=== PATIENT | male | born 2000 | race African-American/Black ===

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

== ENCOUNTER 2020-02-10 09:47 | Emergency (ER) | payer BC ==
[~2020-02-10] VITALS: Ht 177.8 cm; Wt 68.0 kg
[2020-02-10 11:22] VITALS: BP 125/76
--- NOTE | 2020-02-10 13:36 | Emergency Room Report ---
History of Present Illness General Chief Complaint: Upper Respiratory Illness Source: Patient Present Illness HPI 19-year-old male presents to ED for evaluation. States that for the last few days he has been having a cough and congestion. States episodic shortness of breath. Denies shortness of breath at this time. Cough is dry. Denies fevers or chills. Mother was concerned about Covid. States he he lives with elderly family members. No other aggravating relieving factors. 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 Patient History Past Medical History: asthma Past Surgical History: none Pertinent Family History: none Social History: Denies: smoking, alcohol use, drug use Immunizations: UTD Reviewed Nursing Documentation: PMH: Agreed; PSxH: Agreed Nursing Documentation-PMH Past Medical History: No History, Except For Hx Asthma: Yes Hx Neurological Problems: Yes Review of Systems All Other Systems: negative except mentioned in HPI Physical Exam Vital Signs Date Time Temp Pulse Resp B/P (MAP) Pulse Ox O2 Delivery O2 Flow Rate FiO2 02/10/20 09:52 98.4 83 18 128/68 (88) 97 Room Air Sp02 EP Interpretation: reviewed, normal General Appearance: no apparent distress, alert, GCS 15, non-toxic Head: normocephalic, atraumatic Eyes: bilateral eye normal inspection, bilateral eye PERRL ENT: hearing grossly normal, normal pharynx, no angioedema, normal voice Neck: full range of motion, supple/symm/no masses Respiratory: chest non-tender, lungs clear, normal breath sounds, speaking full sentences Cardiovascular #1: regular rate, rhythm, no edema Cardiovascular #2: 2+ carotid (R), 2+ carotid (L), 2+ radial (R), 2+ radial (L), 2+ dorsalis pedis (R), 2+ dorsalis pedis (L) Gastrointestinal: normal bowel sounds, non tender, soft, non-distended, no guarding, no rebound Rectal: deferred Genitourinary: normal inspection, no CVA tenderness Musculoskeletal: back normal, normal range of motion, gait/station normal, non-tender Neurologic: alert, motor strength/tone normal, oriented x3, sensory intact, responsive, speech normal Psychiatric: judgement/insight normal, memory normal, mood/affect normal, no suicidal/homicidal ideation Reflexes: 3+ bicep (R), 3+ bicep (L), 3+ tricep (R), 3+ tricep (L), 3+ knee (R), 3+ knee (L) Lymphatic: no adenopathy Medical Decision Making Diagnostic Impression: Primary Impression: Upper respiratory symptom ER Course Hospital Course 19-year-old male presents with cough, congestion Differential diagnoses include: URI, pharyngitis, otitis media, asthma Clinical course Patient placed on stretcher. Isolation. I wore full PPE. After initial history, physical exam reveals a young male in no acute distress. Bilateral TM unremarkable. No pharyngeal erythema. No tonsillar exudates. No lymphadenopathy. lungs clear. abdomen soft. I ordered chest x-ray, Covid swab Covid swab negative X-ray shows no focal consolidations I discussed findings with patient. Reassurance given. Likely viral course is self-limited. Encourage patient to continue self isolation and wearing mask. Safe for discharge and close outpatient follow-up Diagnosis - URI Stable and discharged home. Instructed to followup with PMD. Return to ED if symptoms recur or worsen Microbiology Date/Time Source Procedure Growth Status 02/10/20 10:24 Nasopharynx SARS-CoV-2 RdRp Gene Assay - Final Complete Chest X-Ray Diagnostic Results Chest X-Ray Diagnostic Results : Chest X-Ray Ordered: Yes # of Views/Limited/Complete: 1 View Indication: Shortness of Breath EP Interpretation: Yes Interpretation: no consolidation, no effusion, no pneumothorax, no acute cardiopulmonary disease Impression: No acute disease Electronically Signed by: Electronically signed by Cl Ross MD Last Vital Signs Date Time Temp Pulse Resp B/P (MAP) Pulse Ox O2 Delivery O2 Flow Rate FiO2 02/10/20 11:22 98.7 76 19 125/76 100 Room Air Status: improved Disposition: HOME, SELF-CARE Condition: Stable Referrals: NOT CHOSEN IPA/,REFERRING (PCP) [facility] Patient Instructions: Upper Respiratory Infection, Adult Cl Ross MD Feb 10, 2020 13:36
--- NOTE | 2020-02-10 14:22 | Diagnostic Imaging Report ---
Indication: Shortness of breath Technique: One view of the chest Comparison: none Findings: Lungs and pleural spaces are clear. Heart size is normal. Impression: No acute process
== END 2020-02-10 11:22 | disposition home or self-care (01) ==
LOC: EMR 10:35
DX: J06.9 Acute upper respiratory infection, unspecified (principal); J45.909 Unspecified asthma, uncomplicated; Z20.828 Contact with and (suspected) exposure to other viral communicable diseases; Z91.013 Allergy to seafood
CPT/HCPCS: 71045; 99283; U0002

== ENCOUNTER 2020-05-28 15:55 | Emergency (ER) | payer BC ==
[~2020-05-28] VITALS: Ht 165.1 cm; Wt 63.5 kg
[2020-05-28 16:33] VITALS: BP 142/79
[2020-05-28] MEDS ORDERED: Lidocaine 2% Visc 15ml soln ORAL ONE (17:15)
[2020-05-28] MEDS ORDERED: Mylanta II UD 30ml ORAL ONE (17:15)
--- NOTE | 2020-05-28 17:40 | Emergency Room Report ---
History of Present Illness General Chief Complaint: Abdominal Pain Source: Patient (Khushbu Crawford) Present Illness HPI 20-year-old male presents to the emergency department complaining of 5 out of 10 severity diffuse lower abdominal pain with migratory gas pains and bloating. Patient reports episodes of vomiting yesterday. He reports he has been having abdominal pain off and on for several months. He also reports that he quite frequently struggles with constipation and hemorrhoids. He denies blood in the vomit or stool. He denies black tarry stools. He reports some abdominal tenderness diffusely. He reports burning sensation as well. He states when he eats it makes his symptoms worse. He also reports that he feels full very quickly. He reports only past medical history of asthma. He denies night sweats or significant changes in weight. Denies fevers or chills. Patient does state however that he has always been on the very skinny side. He denies fatigue, depression, anxiety or hyperactivity. He denies familial history of cancers or thyroid disorders. He denies chest pain, palpitations or shortness of breath. He reports one episode previously of gastroenteritis which resolved with medications. Patient believes his symptoms were due to spoiled food. He reports up until few months ago he did not have any difficulty with GI symptoms such as vomiting, constipation, bloating, gas pain and hemorrhoids. Patient denies taking any assu-xwa-bdtffjz medications. He reports he is able to pass gas. He denies previous abdominal surgeries. He reports poor nutrition/diet and states he eats once per day and usually "junk" food. He denies dysuria, hematuria, urinary frequency or urgency. He does report that he has had in the past UTI. And meningitis as a child. He denies testicular pain or tenderness. He reports frequent use of smoking marijuana and tobacco. He reports intermittent use of EtOH. And he reports on and off intermittent use of opiate pain pills. He denies IV drug use. He denies history of liver disorders. Denies easy bruising or rashes. (Khushbu Crawford) Allergies: Coded Allergies: SHELLFISH DERIVED (Unverified Allergy, Unknown, 02/17/17) Uncoded Allergies: SHELLFISH (Allergy, Intermediate, 12/20/15) COVID-19 Screening Contact w/high risk pt: No Recent Travel to affected area: No Experienced COVID-19 symptoms?: No COVID-19 Testing performed SENIOR FOREMAN: No (Khushbu Crawford) Patient History Past Medical History: see triage record Past Surgical History: none Pertinent Family History: none Immunizations: UTD Reviewed Nursing Documentation: PMH: Agreed; PSxH: Agreed (Khushbu Crawford) Nursing Documentation-PMH Hx Cardiac Problems: No Hx Pacemaker: No Hx Asthma: Yes Hx COPD: No Hx Diabetes: No Hx Cancer: No Hx Gastrointestinal Problems: No Hx Dialysis: No History Of Psychiatric Problem: No Hx Neurological Problems: No Hx Cerebrovascular Accident: No Hx Seizures: No (Khushbu Crawford) Review of Systems All Other Systems: negative except mentioned in HPI (Khushbu Crawford) Physical Exam Vital Signs Date Time Temp Pulse Resp B/P (MAP) Pulse Ox O2 Delivery O2 Flow Rate FiO2 05/28/20 16:33 98.4 85 18 142/79 (100) 95 Room Air Sp02 EP Interpretation: reviewed, normal General Appearance: no apparent distress, alert, GCS 15, non-toxic, thin Head: normocephalic, atraumatic Eyes: bilateral eye normal inspection, bilateral eye PERRL, bilateral eye scleral icterus ENT: hearing grossly normal, normal voice Neck: full range of motion, no meningismus, no bony tend Respiratory: chest non-tender, lungs clear, normal breath sounds, no wheezing, speaking full sentences Cardiovascular #1: regular rate, rhythm, no edema, normal capillary refill Gastrointestinal: normal bowel sounds - Hyperactive bowel sounds in all 4 quadrants, non tender - No significant tenderness on exam, soft, non-distended, no guarding Rectal: deferred Genitourinary: normal inspection, no CVA tenderness Musculoskeletal: normal range of motion, gait/station normal, non-tender Neurologic: alert, motor strength/tone normal, oriented x3, sensory intact, responsive, speech normal Psychiatric: judgement/insight normal Skin: no rash, normal color Lymphatic: no adenopathy (Khushbu Crawford) Medical Decision Making PA Attestation Dr. Dove Is my supervising Physician whom patient management has been discussed with. (Khushbu Crawford) Diagnostic Impression: Primary Impression: Abdominal pain Qualified Codes: R10.84 - Generalized abdominal pain Additional Impressions: Gastritis Qualified Codes: K29.00 - Acute gastritis without bleeding Constipation Qualified Codes: K59.00 - Constipation, unspecified ER Course 20-year-old male presents to the emergency department complaining of 5 out of 10 severity diffuse lower abdominal pain with migratory gas pains and bloating. Patient reports episodes of vomiting yesterday. He reports he has been having abdominal pain off and on for several months. He also reports that he quite frequently struggles with constipation and hemorrhoids. He denies blood in the vomit or stool. He denies black tarry stools. He reports some abdominal tenderness diffusely. He reports burning sensation as well. He states when he eats it makes his symptoms worse. He also reports that he feels full very q uickly. He reports only past medical history of asthma. He denies night sweats or significant changes in weight. Denies fevers or chills. Patient does state however that he has always been on the very skinny side. He denies fatigue, depression, anxiety or hyperactivity. He denies familial history of cancers or thyroid disorders. He denies chest pain, palpitations or shortness of breath. He reports one episode previously of gastroenteritis which resolved with medications. Patient believes his symptoms were due to spoiled food. He reports up until few months ago he did not have any difficulty with GI symptoms such as vomiting, constipation, bloating, gas pain and hemorrhoids. Patient denies taking any adqi-uaw-ymaqlfz medications. He reports he is able to pass gas. He denies previous abdominal surgeries. He reports poor nutrition/diet and states he eats once per day and usually "junk" food. He denies dysuria, hematuria, urinary frequency or urgency. He does report that he has had in the past UTI. And meningitis as a child. He denies testicular pain or tenderness. He reports frequent use of smoking marijuana and tobacco. He reports intermittent use of EtOH. And he reports on and off intermittent use of opiate pain pills. He denies IV drug use. He denies history of liver disorders. Denies easy bruising or rashes. Ddx considered but are not limited to Diverticulitis, acute appendicitis, diarrhea,UC, PUD, GE, pancreatitis, gallstone, hepatitis/liver cirrhosis, Gastric or GI Cancer. Vital signs: are WNL, pt. is afebrile. H&PE are most consistent with gastritis secondary to dietary habits and smoking. Pt. non-toxic in appearance, NAD. No evidence to suggest acute abdomen on physical exam. ORDERS: CBC, CMP, lipase, UA ED INTERVENTIONS: -- Pepcid 20mg PO. - Mylanta PO -Viscous Lidocaine PO -Upon reevaluation the patient reports that after above interventions his symptoms have subsided and he feels much better. I reviewed the results of this patient's imaging and laboratory results with him and encouraged him for GI specialist follow-up. Discussed with patient dietary changes and lifestyle modification to help reduce his symptoms. DISCHARGE: At this time pt. is stable for d/c to home. Will provide printed patient care instructions, and any necessary prescriptions. Care plan and follow up instructions have been discussed with the patient prior to discharge. Labs Test 05/28/20 17:16 White Blood Count 6.0 K/UL (4.8-10.8) Red Blood Count 5.34 M/UL (4.70-6.10) Hemoglobin 16.4 G/DL (14.2-18.0) Hematocrit 47.5 % (42.0-52.0) Mean Corpuscular Volume 89 FL (80-99) Mean Corpuscular Hemoglobin 30.7 PG (27.0-31.0) Mean Corpuscular Hemoglobin Concent 34.5 G/DL (32.0-36.0) Red Cell Distribution Width 11.5 % (11.6-14.8) Platelet Count 293 K/UL (150-450) Mean Platelet Volume 5.4 FL (6.5-10.1) Neutrophils (%) (Auto) 54.4 % (45.0-75.0) Lymphocytes (%) (Auto) 34.8 % (20.0-45.0) Monocytes (%) (Auto) 7.7 % (1.0-10.0) Eosinophils (%) (Auto) 0.8 % (0.0-3.0) Basophils (%) (Auto) 2.3 % (0.0-2.0) Urine Color Yellow Urine Appearance Clear Urine pH 6.5 (4.5-8.0) Urine Specific [place] 1.010 (1.005-1.035) Urine Protein 1+ (NEGATIVE) Urine Glucose (UA) Negative (NEGATIVE) Urine Ketones 4+ (NEGATIVE) Urine Blood 1+ (NEGATIVE) Urine Nitrite Negative (NEGATIVE) Urine Bilirubin Negative (NEGATIVE) Urine Urobilinogen 1 MG/DL (0.0-1.0) Urine Leukocyte Esterase Negative (NEGATIVE) Urine RBC 0-2 /HPF (0 - 0) Urine WBC 0-2 /HPF (0 - 0) Urine Squamous Epithelial Cells None /LPF (NONE/OCC) Urine Bacteria Few /HPF (NONE) Sodium Level 139 MMOL/L (136-145) Potassium Level 3.5 MMOL/L (3.5-5.1) Chloride Level 101 MMOL/L (98-107) Carbon Dioxide Level 28 MMOL/L (21-32) Anion Gap 10 mmol/L (5-15) Blood Urea Nitrogen 10 mg/dL (7-18) Creatinine 1.1 MG/DL (0.55-1.30) Estimat Glomerular Filtration Rate > 60 mL/min (>60) Glucose Level 90 MG/DL (74-106) Calcium Level 9.9 MG/DL (8.5-10.1) Total Bilirubin 2.9 MG/DL (0.2-1.0) Direct Bilirubin 0.4 MG/DL (0.0-0.3) Aspartate Amino Transf (AST/SGOT) 17 U/L (15-37) Alanine Aminotransferase (ALT/SGPT) 20 U/L (12-78) Alkaline Phosphatase 76 U/L (46-116) Total Protein 8.3 G/DL (6.4-8.2) Albumin 4.9 G/DL (3.4-5.0) Globulin 3.4 g/dL Albumin/Globulin Ratio 1.4 (1.0-2.7) Lipase 88 U/L (73-393) (Khushbu Crawford) Other X-Ray Diagnostic Results Other X-Ray Diagnostic Results : X-Ray ordered: KUB # of Views/Limited Vs Complete: 1 View Indication: Pain EP Interpretation: Yes PA Xray: Interpretation reviewed, by supervising , and agrees with sai brian. Interpretation: nonspecific bowel gas, no sbo Impression: No acute disease - moderate gas Electronically Signed by: Khushbu Crawford PA-C (Khushbu Crawford) Other X-Ray Diagnostic Results : Electronically Signed by: Christiano Hoskins documentation of Xray reviewed by me and is accurate, Juanjo Dove MD (Juanjo Dove MD) Last Vital Signs Date Time Temp Pulse Resp B/P (MAP) Pulse Ox O2 Delivery O2 Flow Rate FiO2 05/28/20 16:39 98.5 85 18 95 Room Air 05/28/20 16:33 142/79 (100) Status: improved (Khushbu Crawford) Last Vital Signs Date Time Temp Pulse Resp B/P (MAP) Pulse Ox O2 Delivery O2 Flow Rate FiO2 05/28/20 16:39 98.5 85 18 95 Room Air 05/28/20 16:33 142/79 (100) Status: improved (Juanjo Dove MD) Disposition: HOME, SELF-CARE Condition: Stable Scripts Docusate Sodium* (COLACE*) 100 Mg Capsule 100 MG ORAL THREE TIMES A DAY for 10 Days, #20 CAP Prov: Khushbu Crawford 05/28/20 Mag Hydrox/Aluminum Hyd/Simeth (Mylanta Maximum Strength Liq) 355 Ml Oral.susp 30 ML PO BID, #355 ML Prov: Khushbu Crawford 05/28/20 Famotidine* (Pepcid 20mg tablet*) 20 Mg Tablet 20 MG ORAL TWICE A DAY for Gerd for 14 Days, #28 TAB 0 Refills Prov: Khushbu Crawford 05/28/20 Referrals: NOT CHOSEN IPA/,REFERRING (PCP) [facility] Patient Instructions: Abdominal Pain, Adult, Constipation, Adult, [id number], Food Choices for Gastroesophageal Reflux Disease, Adult, [id number], Gastritis, Adult Additional Instructions: Take medications as directed. Follow up with a Primary Care Provider in 3-5 days for referral to financial officer specialist, even if your symptoms have resolved. --Please review list of primary care clinics, if you do not already have a primary care provider Return sooner to ED if new symptoms occur, or current symptoms become worse. - Please note that this Emergency Department Report was dictated using [employer] Systemsupervisor telephone information technology software, occasionally this can lead to erroneous entry secondary to interpretation by the dictation equipment. Khushbu Crawford May 28, 2020 17:40 Juanjo Dove MD May 29, 2020 01:57
[2020-05-28 17:46] LABS: APPEARANCE,URINE CLEAR; BILIRUBIN, URINE NEGATIVE (NEGATIVE); GLUCOSE, URINE (UA) NEGATIVE (NEGATIVE); KETONES,URINE 4+ (NEGATIVE); LEUKOCYTE ESTERASE ,URINE NEGATIVE (NEGATIVE); NITRITE,URINE NEGATIVE (NEGATIVE); PH,URINE 6.5 (4.5-8.0); PROTEIN,URINE 1+ (NEGATIVE); UROBILINOGEN,URINE 1 MG/DL (0.0-1.0)
[2020-05-28 17:47] LABS: BASOPHILS % (AUTO) 2.3 % (0.0-2.0); EOSINOPHILS % (AUTO) 0.8 % (0.0-3.0); HEMATOCRIT 47.5 % (42.0-52.0); HEMOGLOBIN 16.4 G/DL (14.2-18.0); LYMPHOCYTES % (AUTO) 34.8 % (20.0-45.0); MEAN CORPUSCULAR VOLUME 89 FL (80-99); MONOCYTES % (AUTO) 7.7 % (1.0-10.0); NEUTROPHILS % (AUTO) 54.4 % (45.0-75.0); PLATELET COUNT 293 K/UL (150-450); RED BLOOD COUNT 5.34 M/UL (4.70-6.10); RED CELL DISTRIBUTION WIDTH 11.5 % (11.6-14.8)
[2020-05-28 17:50] LABS: COLOR,URINE YELLOW
[2020-05-28 17:53] LABS: ANION GAP 10 mmol/L (5-15); BLOOD UREA NITROGEN 10 mg/dL (7-18); CALCIUM 9.9 MG/DL (8.5-10.1); CARBON DIOXIDE 28 MMOL/L (21-32); CHLORIDE 101 MMOL/L (98-107); CREATININE 1.1 MG/DL (0.55-1.30); POTASSIUM 3.5 MMOL/L (3.5-5.1); SODIUM 139 MMOL/L (136-145)
[2020-05-28 18:03] LABS: ALANINE AMINOTRANSFERASE 20 U/L (12-78); ALBUMIN 4.9 G/DL (3.4-5.0); ALBUMIN/GLOBULIN RATIO 1.4 (1.0-2.7); ALKALINE PHOSPHATASE 76 U/L (46-116); ASPARTATE AMINO TRANSFERASE 17 U/L (15-37); BILIRUBIN,TOTAL 2.9 MG/DL (0.2-1.0)
[2020-05-28 18:05] LABS: BILIRUBIN,DIRECT 0.4 MG/DL (0.0-0.3)
--- NOTE | 2020-05-28 18:51 | Diagnostic Imaging Report ---
EXAM: XR Abdomen, 2 Views CLINICAL HISTORY: PAIN TECHNIQUE: Frontal view of the abdomen/pelvis with upright view of the abdomen. COMPARISON: 04/19/2019 FINDINGS: Intraperitoneal space: No free air. Gastrointestinal tract: Unremarkable. No dilation. Bones/joints: Unremarkable. IMPRESSION: 1. Unremarkable study. 2. If there is continued concern, consider CT with IV contrast.
[2020-05-28] MEDS ORDERED: COLACE100 MG ORAL (18:55)
[2020-05-28] MEDS ORDERED: FAMOTIDINE20 MG ORAL (18:55)
[2020-05-28] MEDS ORDERED: MYLANTA MAXIMU355 ML PO (18:55)
== END 2020-05-28 18:52 | disposition home or self-care (01) ==
LOC: EMR 16:22
DX: K29.70 Gastritis, unspecified, without bleeding (principal); K59.00 Constipation, unspecified; R10.30 Lower abdominal pain, unspecified; Z91.013 Allergy to seafood
CPT/HCPCS: 36415; 74018; 80053; 81003; 82248; 83690; 85025; 99284